=== PATIENT | male | born 1990 | race Caucasian/White ===

== ENCOUNTER 2021-10-21 09:00 | Outpatient (RCR) | payer OTHER, SELFPAY ==
[2021-09-13 16:03] VITALS: BP 110/65; PULSE 70
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
--- NOTE | 2021-10-31 16:31 | MHC.PT.DC ---
[facility] [place] Office [place] Office [place] Office [address] Justina Perkins [address] [phone] F: [phone] F: [phone] F: [phone] F: [phone] Physical Therapy Discharge Report Diagnosis: Injury L shoulder. Date of Surgery: Date of Evaluation: 09/13/21 Date of Discharge: 10/31/21 Treatments to Date: 11 Cancellations to Date: 1 No Shows to Date: Discharge Status: Improved Function Independent with HEP Insurance Declined Tx Patient Elected to Stop Discharge Summary: Larry had been making slow but steady progress towards his goals and improved function before being informed that his claim was being denied for future coverage and self DC'd with visits left approved for fear of being charged later. Electronically signed by: Erasmo Rush PT. Please sign and return to therapist. Thank you for your referral.
== END 2021-10-31 16:31 | disposition home or self-care (01) ==
LOC: HO.PTCHIC 09:00
PROVIDERS: PCP Physician Assistant; Visit Provider Physician Assistant
DX: S49.92XD Unspecified injury of left shoulder and upper arm, subsequent encounter (principal)
CPT/HCPCS: 97014; 97110; 97140; 97161; 97164

== ENCOUNTER 2022-04-17 15:42 | Outpatient (REF) | payer OTHER, SELFPAY ==
[2022-04-17 16:51] LABS: Anion Gap 14 (12-20); Blood Urea Nitrogen 13 mg/dL (9-16); Calcium 9.5 mg/dL (8.4-10.2); Carbon Dioxide 27 mmol/L (22-29); Chloride 105 mmol/L (96-108); Estimated Glomerular Filt Rate > 60; Glucose Random 94 mg/dL (60-115); Sodium 142 mmol/L (135-145)
[2022-04-17 18:36] LABS: Microalbum/Creatinine Ratio Ur 3.4 ug/mg cr
== END 2022-04-17 15:43 | disposition home or self-care (01) ==
LOC: HO.LAB 15:42
PROVIDERS: PCP Physician Assistant; Visit Provider Physician Assistant
DX: R80.9 Proteinuria, unspecified (principal)
CPT/HCPCS: 36415; 80048; 82043

== ENCOUNTER 2022-08-03 22:24 | Emergency (ER) | payer OTHER, SELFPAY ==
--- NOTE | ~2022-08-03 | US_ITS ---
EXAMINATION: US VENOUS ULTRASOUND WITH DOPPLER LOWER EXTREMITY, LEFT CLINICAL INFORMATION: Rule out DVT COMPARISON: None TECHNIQUE: Ultrasound of the deep veins is performed from the hip to the calf with compression sonography and color and pulse Doppler assessment. Spectral analysis with color-flow imaging is performed. FINDINGS: There is normal venous compression and respiratory variation and augmented flow. The visualized common femoral vein, superficial femoral vein, profunda femoral vein, popliteal vein, and the trifurcation region shows no evidence of deep venous thrombosis. Incomplete assessment of the calf veins due to edema, with the peroneal vein and proximal posterior tibial vein not well visualized. There is no significant popliteal fossa cyst. If the patient's symptoms persist, followup ultrasound in 5 days 7 days might be of value to exclude proximal propagation from a non-visualized calf vein. US/US venous duplex LE LT IMPRESSION: No DVT demonstrated in the left lower extremity.
--- NOTE | ~2022-08-03 | XR_ITS ---
EXAMINATION: XR TIBIA AND FIBULA, LEFT CLINICAL INFORMATION: Pain COMPARISON: None TECHNIQUE: AP and lateral views of the left tibia and fibula were obtained. FINDINGS: No acute fracture or dislocation. No osseous lesion or periostitis. Mild tricompartmental knee joint osteoarthritis noted with small marginal osteophytes. Ankle mortise is congruent and intact. No joint effusion at the ankle. Mild diffuse subcutaneous reticulation/edema. No soft tissue gas. XR/XR tibia fibula LT 2V IMPRESSION: 1. No acute osseous injury or radiographic evidence of stress reaction. 2. Mild tricompartmental knee joint osteoarthritis. 3. Mild diffuse subcutaneous edema.
[2022-08-03 22:29] VITALS: BP 129/84; PULSE 93; RESP 16; TEMP 36.7; O2SAT 98; BMI 55.0
--- NOTE | 2022-08-03 23:30 | PC.NURSE ---
patient reports hitting left leg on metal 3 days ago during slip and fall. left calf swollen w/ erythema and heat, tender to light palpation.
--- NOTE | 2022-08-04 00:14 | ED_ITS ---
HPI - Extremity Injury (Lower) General Chief Complaint: Extremity Injury, Lower Stated Complaint: fell 08/01 left leg pain and swelling Time Seen by Provider: 08/03/22 23:57 Source: patient Mode of arrival: ambulatory Limitations: no limitations History of Present Illness HPI Narrative: Patient comes emergency room complaining of left lower extremity pain, swelling. Patient states that approximately 2 days ago, patient fell, seems that he slipped and hit the back his calf on some piece of metal. Patient states that the swelling and pain has gradually been getting worse. Patient denies any head injuries, patient is not on blood thinners Related Data Previous Rx's Medication Instructions Recorded albuterol sulfate 90 mcg/actuation 2 puff inhalation Q6H PRN 01/25/22 aerosol inhaler shortness of breath or wheezing #6.7 grams prednisone 20 mg tablet 20 mg PO DAILY 5 days #5 tabs 01/25/22 ibuprofen 800 mg tablet 800 mg PO Q8H PRN pain 15 days #45 02/10/22 tabs nicotine (polacrilex) 2 mg gum 2 mg buccal Q2H PRN nicotine 04/06/22 cravings #50 ea alprazolam 1 mg tablet 1 mg PO BID 4 days #8 tabs 06/28/22 doxycycline hyclate 100 mg tablet 100 mg PO BID #14 tabs 08/04/22 Allergies Allergy/AdvReac Type Severity Reaction Status Date / Time amoxicillin [AMOXICILLIN] Allergy Intermediate HIVES/HARD Verified 04/06/22 09:31 TO BREATHE, rash clindamycin [CLINDAMYCIN] Allergy Intermediate ITCHY AND Verified 04/06/22 09:31 HIVES Penicillins [PENICILLINS] Allergy Intermediate HIVES Verified 04/06/22 09:31 Review of Systems Review of Systems: Constitutional : No Weight loss, No Fever, No Chills, No Night Sweats, No Fatigue, No Malaise ENT/Mouth : No Hearing loss, No Ear Pain, No Nasal Congestion, No Sinus Pain, No Hoarseness, No sore throat, No Rhinorrhea, No Swallowing Difficulty Eyes: No Eye Pain, No Swelling, No Redness, No Foreign Body, No Discharge, No Vision Changes Cardiovascular : No Chest Pain, No SOB, No Dyspnea on Exertion, No Orthopnea, No Edema, No Palpitations Respiratory : No Cough, No Sputum, No Wheezing, No Smoke Exposure, No Dyspnea Gastrointestinal : No Nausea, No Vomiting, No Diarrhea, No Constipation, No abdominal Pain, No Hematochezia, No Melena Genitourinary : no irregular bleeding, No Dysuria, No Urinary Frequency, No Hematuria, No Urinary Incontinence, No Urgency, No Flank Pain, No Urinary Flow Changes, No Hesitancy Musculoskeletal : Complaining of left lower extremity calf pain, swelling, redness Skin : No Skin Lesions, No rash Neuro : No Weakness, No Numbness, No Paresthesias, No Loss of Consciousness, No Dizziness, No Headache Psych : No Anxiety/Panic, No Depression, No SI/HI/AH/VH, No Social Issues, Heme/Lymph: No Bruising, No Bleeding,No Lymphadenopathy Endocrine : No Polyuria, No Polydipsia, No Temperature Intolerance [facility] Past Medical History Medical History LILY (obstructive sleep apnea) Surgical History History of open reduction and internal fixation (ORIF) procedure Family History Family History Mother Diabetes Fibromyalgia Father No problems noted. Sister Cancer Social History Social History Housing: Apartment Patient Tobacco Use Status: Former Tobacco user Quit Date: December 2021 Tobacco use type: Cigarette e-Cigarette/Vaping Use: Never Used Advance Directives: No Advance Directives Information Provided: No service: No Current occupational status: employed Cognitive needs: No Hearing needs: No Vision needs: No Physical Exam Vital Signs: Vital Signs: Last Vital Signs Temp 98.0 F 08/03/22 22:29 Pulse 93 08/03/22 22:29 Resp 16 08/03/22 22:29 BP 129/84 08/03/22 22:29 Pulse Ox 98 08/03/22 22:29 O2 Del Method 08/03/22 22:29 BMI result Body Mass Index 55.0 Const: Other: Appearance: Alert. Oriented X3. No acute distress. Eyes: Pupils equal, round and reactive to light. ENT: Pharynx normal. Neck: Normal inspection. Neck supple. No lymph nodes noted. No crepitus CVS: Normal heart rate and rhythm. Pulses normal. Normal S1 and S2 Respiratory: No respiratory distress. Breath sounds normal. No Wheezing. No rales Abdomen: Soft and nontender. No rigidity. No distention. Skin: Skin warm and dry. Normal skin color. Normal skin turgor. Extremities: Both lower extremities are large due to body habitus. The left leg seems on the calf enlarged, tender palpation, erythematous Neuro: Oriented X 3. No motor deficit. No sensory deficit. Moving all extremities. No slurred speech. CN 2 through 12 grossly intact Psych: calm, cooperative, normal affect Course Course Course Narrative: -patient likely has healed lightest versus DVT. X-ray of the tibia/fibula negative. -duplex ultrasound pending -patient given 1 dose of p.o. tramadol Medications Administered Discontinued Medications Generic Name Dose Route Start Last Admin Trade Name Freq PRN Reason Stop Dose Admin Tramadol HCl 50 mg 08/04/22 00:13 08/04/22 00:42 Tramadol Hcl 50 Mg Tablet PO 08/04/22 00:14 50 mg ONCE ONE Administration Medical Decision Making Medical Decision Making [facility] Narrative: -patient he has lower extremity cellulitis -ultrasound has not been done at this time. Still pending Patient will be given the 1st dose of antibiotics. Sign-out given to Dr. Santos Discharge Plan Discharge Clinical Impression: Cellulitis Patient Disposition: Home, Self-Care Instructions: Cellulitis (ED) Additional Instructions: Please follow-up with your primary care physician tomorrow. If you have any worsening or new symptoms, please return to the emergency room or call 911 Prescriptions: New doxycycline hyclate 100 mg tablet 100 mg PO BID Qty: 14 0RF No Action ibuprofen 800 mg tablet 800 mg PO Q8H PRN (Reason: pain) 15 Days Qty: 45 0RF alprazolam 1 mg tablet 1 mg PO BID 4 Days Qty: 8 0RF albuterol sulfate 90 mcg/actuation HFA aerosol inhaler 2 puff inhalation Q6H PRN (Reason: shortness of breath or wheezing) Qty: 6.7 0RF prednisone 20 mg tablet 20 mg PO DAILY 5 Days Qty: 5 0RF nicotine (polacrilex) 2 mg gum 2 mg buccal Q2H PRN (Reason: nicotine cravings) Qty: 50 0RF
[2022-08-04] MEDS: traMADoL HCL 50 MG TABLET PO (00:42)
[2022-08-04] MEDS: Doxycycline Monohydrate 100 MG CAPSULE PO (01:42)
[2022-08-04 03:19] VITALS: BP 131/58; PULSE 82; RESP 20; O2SAT 98
== END 2022-08-04 03:20 | disposition home or self-care (01) ==
PROVIDERS: Emergency Provider Emergency Medicine; PCP Physician Assistant
DX: L03.116 Cellulitis of left lower limb (principal); R60.0 Localized edema; Z79.899 Other long term (current) drug therapy; Z87.891 Personal history of nicotine dependence
CPT/HCPCS: 73590; 93971; 99284

== ENCOUNTER 2022-10-05 06:10 | Emergency (ER) | payer OTHER, SELFPAY ==
--- NOTE | ~2022-10-05 | CT_ITS ---
EXAMINATION: CT ABDOMEN AND PELVIS WITHOUT CONTRAST CLINICAL INFORMATION: Left flank pain, evaluate for ureterolithiasis COMPARISON: None available. TECHNIQUE: Multidetector volumetric imaging was performed from the superior aspect of the liver through the pubic symphysis. Sagittal and coronal reformatted images were obtained on the technologist's workstation. This CT examination was performed using dose optimization techniques as appropriate, variously including the following: *Automated exposure control *Adjustment of mA and/or kV according to patient size (this includes techniques or standardized protocols for targeted exams where dose is matched to indication/reason for exam; i.e. extremities or head) *Use of iterative reconstruction technique DLP: 1309 mGy-cm FINDINGS: LUNG BASES: The visualized lung bases are unremarkable. LIVER, GALLBLADDER, AND BILIARY TREE: The liver is normal in size, shape, and attenuation. No focal hepatic lesion or biliary ductal dilatation is present. The gallbladder is unremarkable with no evidence of radiopaque gallstones, gallbladder wall thickening, or obvious pericholecystic inflammatory changes. PANCREAS: Prominent fatty infiltration of the pancreas particularly involving the pancreatic head and uncinate process. SPLEEN: Unremarkable. ADRENAL GLANDS: Unremarkable. KIDNEYS AND URETERS: Mild left-sided hydroureteronephrosis secondary to a calculus involving the left proximal/mid ureter measuring 6 mm with slight periureteral and perinephric stranding. No right-sided nephrolithiasis or hydronephrosis. BLADDER: Unremarkable. GASTROINTESTINAL TRACT: Colonic diverticulosis without acute diverticulitis. The small and large bowel are unremarkable. The appendix is unremarkable. ABDOMINAL WALL: No significant hernia is appreciated. LYMPH NODES: A few mildly prominent though nonenlarged bilateral inguinal periaortic and mesenteric lymph nodes are noted. VASCULAR: Unremarkable. PELVIC VISCERA: Prostate measures up to 4.0 cm. OSSEOUS STRUCTURES: Grade 1 retrolisthesis of L5 on S1. Multilevel degenerative changes of the thoracolumbar lumbosacral spine greatest at L5-S1. Partially visualized right hip hardware. CT/CT abdomen pelvis wo IV con IMPRESSION: 1. Mild left-sided hydroureteronephrosis secondary to a calculus involving the left proximal/mid ureter measuring 6 mm with slight periureteral and perinephric stranding. 2. Prominent fatty infiltration of the pancreas particularly involving the pancreatic head and uncinate process. 3. Colonic diverticulosis without acute diverticulitis. 4. Grade 1 retrolisthesis of L5 on S1.
[2022-10-05 06:30] VITALS: BP 111/92; PULSE 62; RESP 20; TEMP 36.4; O2SAT 97; BMI 53.8
--- NOTE | 2022-10-05 06:45 | MHC.EDTECH ---
pt a difficult draw ,unable to get labs ,dasha richardson aware .
[2022-10-05 07:01] LABS: MANUAL DIFF FLAG NO
[2022-10-05 07:06] LABS: Appearance Urine Clear; Color Urine Dark Yellow; Glucose Urine UA Negative (Negative); Leukocyte Esterase Urine Trace (Negative); Nitrite Urine Negative (Negative); UMIC TRIGGER UACC YES; Urine Blood Large (3+) (Negative); Urine Ketones Negative (Negative); Urine Protein Trace mg/dL (Neg-Trace)
[2022-10-05 07:09] LABS: Bacteria Urine None Seen (None Seen); Hyaline Casts Urine 0-2 /LPF (0-2); RBC Urine >20 /HPF (0-2); Squamous Epithelial Cell Urine 0-2 /HPF (0-2); WBC Urine 0-5 /HPF (0-5)
[2022-10-05 07:11] LABS: Basophils Absolute Auto 0.1 X10*3/uL (0.0-0.2); Basophils Percent Auto 0.5 % (0-2); Eosinophils Absolute Auto 0.2 X10*3/uL (0.0-0.4); Eosinophils Percent Auto 1.5 % (0-4); Hematocrit 45.2 % (42.0-52.0); Imm Gran Abs Auto 0.04 X10*3/uL (0.00-0.03); Imm Gran Pct Auto 0.4 % (0.0-0.4); Lymphocytes Absolute Auto 2.4 X10*3/uL (1.2-4.9); Lymphocytes Percent Auto 21.1 % (20-40); Mean Corpuscular HGB Conc 33.2 g/dl (31.0-36.0); Mean Corpuscular Hemoglobin 30.5 pg (27.0-33.0); Mean Corpuscular Volume 92.1 fL (80.0-98.0); Mean Platelet Volume 11.1 fL (9.4-12.4); Monocytes Absolute Auto 1.1 X10*3/uL (0.1-1.2); Monocytes Percent Auto 9.4 % (2-11); Neutrophils Absolute Auto 7.7 x10*3/uL (2.0-8.3); Neutrophils Percent Auto 67.1 % (45-73); Platelet Count 278 X10*3/uL (160-400); Red Blood Count 4.91 X10*6/uL (4.60-5.80); Red Cell Distribution Width 12.1 % (11.0-16.0); White Blood Count 11.4 X10*3/uL (4.8-10.8)
[2022-10-05 07:18] LABS: Alanine Aminotransferase 14 U/L (0-40); Albumin Level 4.1 g/dL (3.5-5.0); Alkaline Phosphatase 64 U/L (39-117); Anion Gap 15 (12-20); Aspartate Amino Transferase 16 U/L (5-37); Bilirubin Total 0.8 mg/dL (0.0-1.0); Blood Urea Nitrogen 12 mg/dL (9-16); Calcium 8.7 mg/dL (8.4-10.2); Carbon Dioxide 20 mmol/L (22-29); Chloride 110 mmol/L (96-108); Estimated Glomerular Filt Rate > 60; Glucose Random 124 mg/dL (60-115); Lipase 9 U/L (8-78); Potassium 3.9 mmol/L (3.3-5.1); Sodium 141 mmol/L (135-145); Total Protein 6.5 g/dL (6.5-8.0)
--- NOTE | 2022-10-05 07:38 | ED.ABDPAIN ---
HPI - Abdominal Pain General Chief Complaint: Abdominal Pain Stated Complaint: abdominal pain Time Seen by Provider: 10/05/22 07:25 Source: patient Mode of arrival: ambulatory Limitations: no limitations History of Present Illness HPI narrative: 32-year-old male presents flank pain. Pain is on the left side. Radiates left groin. The pain is constant with waves of worsening symptoms. There is no clear relieving or exacerbating features. He has urinary frequency but no dysuria or hematuria. He has never had this before. He has nausea but no vomiting. Denies ear constipation. He denies any fevers or chills. Current symptoms are 10/10. He describes the pain as a sharp pain. Related Data Previous Rx's Medication Instructions Recorded ibuprofen 800 mg tablet 800 mg PO Q8H PRN pain 15 days #45 02/10/22 tabs nicotine (polacrilex) 2 mg gum 2 mg buccal Q2H PRN nicotine 04/06/22 cravings #50 ea albuterol sulfate 90 mcg/actuation 2 puff inhalation Q4-6H PRN 08/18/22 aerosol inhaler (Ventolin HFA) shortness of breath or wheezing #8.5 grams alprazolam 1 mg tablet 1 mg PO BID 4 days #8 tabs 08/22/22 ibuprofen 800 mg tablet 800 mg PO Q8H PRN pain #20 tabs 10/05/22 ondansetron 4 mg disintegrating 4 mg PO Q8H PRN nausea and 10/05/22 tablet vomiting #14 tabs oxycodone 5 mg tablet 5 mg PO Q6H PRN pain #14 tabs 10/05/22 Allergies Allergy/AdvReac Type Severity Reaction Status Date / Time amoxicillin [AMOXICILLIN] Allergy Intermediate HIVES/HARD Verified 10/05/22 06:35 TO BREATHE, rash clindamycin [CLINDAMYCIN] Allergy Intermediate ITCHY AND Verified 10/05/22 06:35 HIVES Penicillins [PENICILLINS] Allergy Intermediate HIVES Verified 10/05/22 06:35 PMFSH Past Medical History Medical History LILY (obstructive sleep apnea) Surgical History History of open reduction and internal fixation (ORIF) procedure Family History Family History Mother Diabetes Fibromyalgia Father No problems noted. Sister Cancer Social History Social History Housing: Apartment Patient Tobacco Use Status: Former Tobacco user Quit Date: December 2021 Tobacco use type: Cigarette Smoked in Last 30 Days: No e-Cigarette/Vaping Use: Never Used Use of substances other than those prescribed or required for medical reasons: No Substance Use Type: Marijuana Advance Directives: No service: No Current occupational status: employed Cognitive needs: No Hearing needs: No Vision needs: No Physical Exam ED Vital Signs: Vital Signs - 24 hr 10/05/22 06:30 10/05/22 08:41 Temperature 97.6 F Pulse Rate 62 67 Respiratory Rate 20 18 Blood Pressure 111/92 H 144/79 H Pulse Oximetry 97 99 Oxygen Delivery Method Room Air Room Air BMI result Body Mass Index 51.2 GEN: Well developed, acute distress, alert, oriented HEENT: Normocephalic, atraumatic, normal external ears, nose appears normal, no oropharyngeal edema or exudates Eyes: Normal to appearance Neck: Supple, no lymphadenopathy Respiratory: Talks in complete sentences, no respiratory distress, clear to auscultation bilaterally Cardiovascular: Regular rate and rhythm, no murmurs rubs or gallops Abdomen: Soft, nontender, nondistended, no guarding, no rebound Back: Left CVA tenderness Extremities: No clubbing cyanosis or edema Neurologic: No focal neurologic deficits, cranial nerves 2-12 intact, strength is 5/5 bilaterally, gait normal Skin: No rash Course Course Course Narrative: 32-year-old male presents with acute left flank pain. He is clearly in acute distress from pain and discomfort. He appears to have a kidney stone. Multiple differential diagnosis currently being considered. Will have a CT scan to rule out nephrolithiasis. Also order urinalysis to rule out pyelonephritis. Patient receive IV fluids, antiemetics and analgesics. Reevaluation(s) Reevaluation #1: pain is managable at this time. Time: 09:16 Reevaluation #2: Patient is feeling much better at this time. Will discharge patient. Aware he has a 6 mm stone. He is aware he should follow up with the urologist. He was given strict return instructions. Medical Decision Making Medical Decision Making [facility] Narrative: Patient's presentation is most consistent with renal colic. Most likely it is from a non infected kidney stone. Given history and exam, I have a low suspicion for acute appendicitis, torsion, cholecystitis, AAA, aortic dissection, serious bacterial illness or other emergent intra-abdominal pathology. Workup will include CBC, metabolic panel, CT scan the abdomen pelvis, urinalysis. Patient will have frequent you reassessments. Differential Diagnosis Differential Diagnoses: The differential diagnosis associated with the presentation includes (Kidney stone, pyelonephritis, appendicitis, diverticulitis, colitis, abdominal pain) Admission/Observation Consideration of admission/observation: Escalation of care including admission/observation considered Lab Data [facility] Lab Attestation statement: I reviewed the patient's lab results. 10/05/22 06:56 10/05/22 06:57 Labs: Lab Results 10/05/22 10/05/22 10/05/22 Range/Units 06:56 06:56 06:57 WBC 11.4 H (4.8-10.8) X10*3/uL RBC 4.91 (4.60-5.80) X10*6/uL Hgb 15.0 (14.0-18.0) g/dl Hct 45.2 (42.0-52.0) % MCV 92.1 (80.0-98.0) fL MCH 30.5 (27.0-33.0) pg MCHC 33.2 (31.0-36.0) g/dl RDW 12.1 (11.0-16.0) % Plt Count 278 (160-400) X10*3/uL MPV 11.1 (9.4-12.4) fL Immature Gran % (Auto) 0.4 (0.0-0.4) % Neut % (Auto) 67.1 (45-73) % Lymph % (Auto) 21.1 (20-40) % [place] % (Auto) 9.4 (2-11) % Eos % (Auto) 1.5 (0-4) % Baso % (Auto) 0.5 (0-2) % Lymph # (Auto) 2.4 (1.2-4.9) X10*3/uL [place] # (Auto) 1.1 (0.1-1.2) X10*3/uL Eos # (Auto) 0.2 (0.0-0.4) X10*3/uL Baso # (Auto) 0.1 (0.0-0.2) X10*3/uL Abs Immat Gran (auto) 0.04 H (0.00-0.03) X10*3/uL Absolute Neuts (auto) 7.7 (2.0-8.3) x10*3/uL Absolute Nucleated RBC 0.000 (0.0-0.012) X10*3/uL Nucleated RBC % (auto) 0.0 (0.0-0.2) /100WBC Sodium 141 (135-145) mmol/L Potassium 3.9 (3.3-5.1) mmol/L Chloride 110 H (96-108) mmol/L Carbon Dioxide 20 L (22-29) mmol/L Anion Gap 15 (12-20) BUN 12 (9-16) mg/dL Creatinine 0.83 (0.5-1.4) mg/dL Estim Creat Clear Calc 231.0 Estimated GFR > 60 Random Glucose 124 H (60-115) mg/dL Calcium 8.7 D (8.4-10.2) mg/dL Total Bilirubin 0.8 (0.0-1.0) mg/dL AST 16 (5-37) U/L ALT 14 (0-40) U/L Alkaline Phosphatase 64 (39-117) U/L Total Protein 6.5 (6.5-8.0) g/dL Albumin 4.1 (3.5-5.0) g/dL Lipase 9 (8-78) U/L Urine Color Dark Yellow Urine Appearance Clear Urine pH 6.0 (5.0-9.0) Ur Specific [place] 1.020 (1.005-1.025) Urine Protein Trace (Neg-Trace) mg/dL Urine Glucose (UA) Negative (Negative) mg/dL Urine Ketones Negative (Negative) mg/dL Urine Blood Large (3+) H (Negative) Urine Nitrite Negative (Negative) Ur Leukocyte Esterase Trace H (Negative) Urine RBC >20 H (0-2) /HPF Urine WBC 0-5 (0-5) /HPF Ur Squamous Epith Cells 0-2 (0-2) /HPF Urine Bacteria None Seen (None Seen) Hyaline Casts 0-2 (0-2) /LPF Independent Interpretation I performed an independent interpretation of an: CT Scan (For of mm mid ureteral stone) Radiology Impression Discussion of test interpretation with radiology: I have reviewed the radiologist's reading. ( CT/CT abdomen pelvis wo IV con IMPRESSION: 1. Mild left-sided hydroureteronephrosis secondary to a calculus involving the left proximal/mid ureter measuring 6 mm with slight periureteral and perinephric stranding. 2. Prominent fatty infiltration of the pancreas particularly invo) Tests considered The following testing was considered but not selected: Ultrasound Prescription Management I considered prescription management with: Pain Medication and Antibiotic Medications Administered Discontinued Medications Generic Name Dose Route Start Last Admin Trade Name Freq PRN Reason Stop Dose Admin Sodium Chloride 1,000 mls @ 999 mls/hr 10/05/22 07:45 10/05/22 08:14 Ns IV 10/05/22 08:45 999 mls/hr .Q1H1M HECTOR Administration Ketorolac Tromethamine 15 mg 10/05/22 07:37 10/05/22 08:13 Ketorolac Tromethamine 15 Mg/Ml Vial IVPUSH 10/05/22 07:38 15 mg ONCE ONE Administration Morphine Sulfate 4 mg 10/05/22 09:16 10/05/22 09:29 Morphine Sulfate 4 Mg/Ml Cartridge IVPUSH 10/05/22 09:17 4 mg ONCE ONE Administration Protocol Ondansetron HCl 4 mg 10/05/22 07:37 10/05/22 08:13 Ondansetron Hcl 4 Mg/2 Ml Vial IVPUSH 10/05/22 07:38 4 mg ONCE ONE Administration Discharge Plan Discharge Clinical Impression: Left flank pain, Ureterolithiasis Patient Disposition: Home, Self-Care Instructions: Ureteral Stones (ED) Additional Instructions: For pain take the followin) ibuprofen 800 mg every 8 hours as needed (best kidney stone pain medicine 2) tylenol 1000 mg every 6 hours as needed for additional pain 3) oxycodone 5 mg every 6 hours as needed for severe pain. Drink plenty of fluids. Prescriptions: New ibuprofen 800 mg tablet 800 mg PO Q8H PRN (Reason: pain) Qty: 20 0RF oxycodone 5 mg tablet 5 mg PO Q6H PRN (Reason: pain) Qty: 14 0RF Rx Instructions: Partial Fill upon patient request. ondansetron 4 mg tablet,disintegrating 4 mg PO Q8H PRN (Reason: nausea and vomiting) Qty: 14 0RF No Action ibuprofen 800 mg tablet 800 mg PO Q8H PRN (Reason: pain) 15 Days Qty: 45 0RF albuterol sulfate [Ventolin HFA] 90 mcg/actuation HFA aerosol inhaler 2 puff inhalation Q4-6H PRN (Reason: shortness of breath or wheezing) Qty: 8.5 0RF alprazolam 1 mg tablet 1 mg PO BID 4 Days Qty: 8 0RF nicotine (polacrilex) 2 mg gum 2 mg buccal Q2H PRN (Reason: nicotine cravings) Qty: 50 0RF Referrals: good, [place] [Other] - 3 days
[2022-10-05 08:10] VITALS: BMI 51.2
--- NOTE | 2022-10-05 08:10 | PC.NURSE ---
pt alert and oriented, skin appropriate for ethnicity, respirations even and unlabored, pt reports left sided flank pain with nausea that started around 0400
[2022-10-05] MEDS: ondansetron HCL 4 MG/2 ML VIAL IVPUSH (08:13)
[2022-10-05] MEDS: Ketorolac Tromethamine 15 MG/ML VIAL IVPUSH (08:13)
[2022-10-05] MEDS: 0.9 % Sodium Chloride 1,000 ML 999 ML IV (08:14)
[2022-10-05 08:41] VITALS: BP 144/79; PULSE 67; RESP 18; O2SAT 99
[2022-10-05] MEDS: Morphine Sulfate 4 MG/ML CARTRIDGE IVPUSH (09:29)
[2022-10-05 10:24] VITALS: BP 120/70; PULSE 51; RESP 20; TEMP 36.6; O2SAT 100
== END 2022-10-05 10:32 | disposition home or self-care (01) ==
PROVIDERS: Emergency Provider Emergency Medicine; PCP Physician Assistant
DX: N20.1 Calculus of ureter (principal); R10.30 Lower abdominal pain, unspecified; R10.9 Unspecified abdominal pain; Z87.891 Personal history of nicotine dependence; Z79.899 Other long term (current) drug therapy
CPT/HCPCS: 36415; 74176; 80053; 81001; 83690; 85025; 96361; 96374; 96375; 99284; 99285; J1885; J2270; J2405

== ENCOUNTER → 2022-10-16 14:44 | Outpatient (BNVA) | payer OTHER, SELFPAY | PROVIDERS: PCP Physician Assistant; Visit Provider Nurse Practitioner Family | DX: N13.2 Hydronephrosis with renal and ureteral calculous obstruction (principal) | CPT/HCPCS: 99202 ==

== ENCOUNTER 2022-11-08 09:25 | Outpatient (REF) | payer OTHER, SELFPAY ==
--- NOTE | ~2022-11-08 | US_ITS ---
EXAMINATION: US RETROPERITONEAL LIMITED (RENAL ONLY) CLINICAL INFORMATION: Calculus of kidney. COMPARISON: CT abdomen pelvis 10/05/2022. TECHNIQUE: Real-time imaging of the kidneys. Exam is limited due to bowel gas FINDINGS: RIGHT KIDNEY: 13.1 x 4.9 x 5.1 cm (SAG x AP x TRV). The kidney is normal in size, contour, and echogenicity. Renal cortical thickness is normal. No calculi or focal parenchymal lesions. No hydronephrosis. LEFT KIDNEY: 13.6 x 6.1 x 5.4 cm (SAG x AP x TRV). The kidney is normal in size, contour, and echogenicity. Renal cortical thickness is normal. No calculi or focal parenchymal lesions. No hydronephrosis. US/US renal BI IMPRESSION: Very limited exam. No stone or hydronephrosis seen.
== END 2022-11-08 09:26 | disposition home or self-care (01) ==
LOC: HO.US 09:25
PROVIDERS: PCP Physician Assistant; Visit Provider Nurse Practitioner Family
DX: N20.0 Calculus of kidney (principal)
CPT/HCPCS: 76775

== ENCOUNTER 2023-04-06 08:45 | Outpatient (AMB) | payer OTHER, SELFPAY ==
--- NOTE | 2023-04-06 08:47 | A.OFFVIS_ITS ---
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 Accompanied by: Self / Same As Patient Allergies amoxicillin [AMOXICILLIN] Allergy (Intermediate, Verified 10/16/22 21:45) HIVES/HARD TO BREATHE, rash clindamycin [CLINDAMYCIN] Allergy (Intermediate, Verified 10/16/22 21:45) ITCHY AND HIVES Penicillins [PENICILLINS] Allergy (Intermediate, Verified 10/16/22 21:45) HIVES Medication List - Last Reconciled 04/06/23 by NINA Schmitz-LYNN albuterol sulfate 90 mcg/actuation (Ventolin HFA) 2 puffs inhalation Q4-6H PRN alprazolam 1 mg PO BID PRN ibuprofen 800 mg PO Q8H PRN HPI HPI Comments History of Present Illness Details Larry is a pleasant 32-year-old male patient of Dr. Dong. He presents to the office today for follow-up. Of note, patient was seen approximately 4 months ago as a new patient for nephrolithiasis at which time imaging was ordered however patient did not follow through. He discusses having had weight loss surgery in October of this year and has lost over 100 lb. He discusses going to [facility] Emergency Room approximately one month ago for issues with his urination, flank pain, and dark urine. In review of patient's chart it appears CT of the abdomen and pelvis was ordered and performed. These results reviewed with the patient today. The kidneys are unremarkable. No evidence of nephrolithiasis or hydronephrosis. Patient reports he was diagnosed with a UTI and has since finished antibiotic therapy. When asked he reports he continues with intermittent episodes of difficulty urinating. He otherwise currently denies urinary urgency, urinary frequency, incontinence, nocturia, hematuria, dysuria, foul smelling urine, changes to urinary stream, flank pain, fever, and or chills. In office urinalysis results reviewed with the patient today. PVR 0 mL. When asked patient does report a longstanding history of smoking cigarettes as well as recreational marijuana. However, he reports having stop smoking cig arettes for his weight loss surgery and recently stop smoking recreational marijuana as him and his partner are trying to have children. No leukocytes, nitrites, or hematuria noted in urinalysis today. Discussed further gross hematuria work up with CT urogram, cytology, and in office cystoscopy however patient declines at this time. Discussed CT from [facility] with no contrast and would like to obtain CT urogram and undergo gross heamturia workup however patient states he would like to think about this. [facility] Medical History LILY (obstructive sleep apnea) Surgical History History of open reduction and internal fixation (ORIF) procedure Family History Mother Diabetes Fibromyalgia Father No problems noted. Sister Cancer Social History Housing: Apartment Patient Tobacco Use Status: Former Tobacco user Quit Date: December 2021 Tobacco use type: Cigarette e-Cigarette/Vaping Use: Never Used Substance Use Type: Marijuana service: No Current occupational status: employed Cognitive needs: No Hearing needs: No Vision needs: No Review of Systems Const Reports as per HPI Eyes Reports no additional complaints ENT Reports no additional complaints Card Reports no additional complaints Resp Reports no additional complaints GI Reports as per HPI Reports as per HPI Musc Reports no additional complaints Neuro Reports no additional complaints Psych Reports no additional complaints Endo Reports no additional complaints Hank/Lymph Reports no additional complaints Aller/Immun Reports no additional complaints Physical Exam Vital Signs: BMI result Body Mass Index 35.9 Const General: cooperative, comfortable, no acute distress, well developed, alert and awake Orientation/consciousness: patient oriented x3 Limitations: no limitations HEENT Head: Yes normal to inspection, Yes normocephalic and Yes atraumatic Ears: hearing grossly normal bilaterally Eyes General: appearance normal, both eyes and all related structures Neck Neck: Yes normal visual inspection and Yes trachea midline Chest Chest palpation & inspection: normal inspection of the chest Resp Effort & Inspection: normal respiratory effort and able to speak in complete sentences Cardio Rate: regular rate GI Inspection: Yes normal to inspection General: Yes CVA tenderness on the left Back/Spine/Pelvis Back: CVA tenderness Skin General skin exam: no rashes or lesions noted Neuro General: patient oriented x3 Extrem General: Yes normal to inspection Psych Appearance: grossly normal and well kempt Mental Status: mental status grossly normal Speech and movement: Normal speech and movement present and Clear speech present Affect: normal affect Attitude: cooperative Thought process: Normal thought process present Thought content: Normal thought content present Insight: Good insight present (Psych) Judgement: Good judgement present (Psych) Office Procedures Post Void Residual Post Residual Void Post Void Residual (PVR): 0 [id number] Void Residual by ultrasound Results AMB Urinalysis, Automated UA Leukoctes 0 Khadar/uL Last Edit by BRITTNEE Cerda on 04/06/23 09:10 UA Nitrite Negative Last Edit by Paula Saavedra [facility] on 04/06/23 09:10 UA Urobilinogen 0.2 mg/dL Last Edit by Paula Saavedra Margarita on 04/06/23 09:1 0 UA Protein 0 mg/dL Last Edit by Paula Saavedra [facility] on 04/06/23 09:10 UA pH 8.0 Last Edit by Paula Saavedra Margarita on 04/06/23 09:10 UA Blood 0 Gómez/uL Last Edit by Paula Saavedra Margarita on 04/06/23 09:10 UA Specific Wentworth 1.015 Last Edit by Paula Saavedra Margarita on 04/06/23 09: 10 UA Ketone Negative Last Edit by BRITTNEE Cerda on 04/06/23 09:10 UA Bilirubin 0 mg/dL Last Edit by Paula Saavedra [facility] on 04/06/23 09:10 UA Glucose 0 mg/dL Last Edit by Paula Saavedra Margarita on 04/06/23 09:10 Results Reviewed Results Reviewed: Laboratory Last Values Urine pH (Auto) 8.0 04/06/23 09:04 Specific Wentworth (Auto) 1.015 04/06/23 09:04 Urine Protein (Auto) 0 mg/dL 04/06/23 09:04 Glucose (UA)(Auto) 0 mg/dL 04/06/23 09:04 Urine Ketones (Auto) Negative 04/06/23 09:04 Urine Blood (Auto) 0 Gómez/uL 04/06/23 09:04 Urine Nitrite (Auto) Negative 04/06/23 09:04 Urine Bilirubin (Auto) 0 mg/dL 04/06/23 09:04 Urine Urobilinogen (Auto) 0.2 mg/dL 04/06/23 09:04 Leukocyte Esterase (Auto) 0 Khadar/uL 04/06/23 09:04 Assessment & Plan Assessment & Plan (1) Lower urinary tract symptoms: Code(s): R39.9 - Unspecified symptoms and signs involving the genitourinary system (2) Dark urine: Code(s): R82.998 - Other abnormal findings in urine Plan In office urinalysis results reviewed with the patient today; as noted above; will send for urine cytology. Discussed at length potential causes for gross hematuria. Discussed obtaining CT urogram, cytology, in office cystoscopy for workup of gross hematuria; however patient would like to think about this. Recent CT of the abdomen with no contrast results reviewed with the patient today; as noted above. Educated and encouraged to stop smoking recreational marijuana as well as cigarettes for overall health and well-being. Will obtain retroperitoneal ultrasound for further assessment evaluation. Discussed, educated, instructed on the importance of drinking plenty of water daily. Start Flomax as discussed and prescribed. Follow-up in 6-8 weeks with imaging to be completed prior; or sooner with any issues, concerns, and or questions. Orders: Orders Blood Urea Nitrogen 04/06/23 R39.9 - Unspecified symptoms and signs involving the genitourinary system, R82.998 - Other abnormal findings in urine Creatinine 04/06/23 R39.9 - Unspecified symptoms and signs involving the genitourinary system, R82.998 - Other abnormal findings in urine AMB Post Void Residual by ultrasound 04/06/23 N39.8 - Other specified disorders of urinary system AMB Urinalysis Automated 04/06/23 Z13.9 - Encounter for screening, unspecified US retroperitoneal comp 04/06/23 R39.9 - Unspecified symptoms and signs involving the genitourinary system, R82.998 - Other abnormal findings in urine Medications: New tamsulosin 0.4 mg PO BEDTIME 30 caps 1RF 30 days N40.1 - Benign prostatic hyperplasia with lower urinary tract symptoms, R35.1 - Nocturia Changed From alprazolam 1 mg PO BID 4 days 8 tabs 0RF F43.10 - Post-traumatic stress disorder, unspecified To alprazolam 1 mg PO BID PRN F43.10 - Post-traumatic stress disorder, unspecified Coding Level of Care Code Est Pt Level 4 (74146) Diagnoses Lower urinary tract symptoms R39.9 Dark urine R82.998 CPT Codes Post Residual Void - PVR CPT Code: 28658-Flrn Void Residual by ultrasound ([id number])
[2023-04-06 09:03] VITALS: BMI 35.9
== END 2023-04-06 09:14 | disposition home or self-care (01) ==
PROVIDERS: PCP Physician Assistant; Visit Provider Nurse Practitioner Family
DX: R39.9 Unspecified symptoms and signs involving the genitourinary system (principal); R82.998 Other abnormal findings in urine
CPT/HCPCS: 99214

== ENCOUNTER → 2023-04-06 08:45 | Outpatient (BNVA) | payer OTHER, SELFPAY | PROVIDERS: PCP Physician Assistant; Visit Provider Nurse Practitioner Family | DX: R39.9 Unspecified symptoms and signs involving the genitourinary system (principal); R82.998 Other abnormal findings in urine | CPT/HCPCS: 51798; 81003; 99212 ==

== ENCOUNTER 2023-04-11 08:12 | Outpatient (AMB) | payer OTHER, SELFPAY ==
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
[2023-04-11 08:47] VITALS: BP 110/72; BMI 34.9
== END 2023-04-11 09:21 | disposition home or self-care (01) ==
PROVIDERS: PCP Physician Assistant; Visit Provider Physician Assistant
DX: Z23 Encounter for immunization (principal)
CPT/HCPCS: 90471; 90686; 99395

== ENCOUNTER → 2023-04-23 10:28 | Outpatient (REF) | payer OTHER, SELFPAY ==
--- NOTE | 2023-04-23 10:33 | HM_ITS ---
* Total monitoring time 3 days. * Underlying rhythm is sinus. Average ventricular rate 54/Min. Range 32 to 119/Min. About 66% of the time, rate less than 60/Min. * Rare ventricular ectopy. One run of 4 beats. Part of this run could be supraventricular with aberrant conduction. * Rare supraventricular ectopy. * No significant pauses or AV blocks. * Shortness of breath and weakness in patient diary associated with mild sinus tachycardia at 105/Min. MTDD
[2023-04-23 11:46] LABS: Hematocrit 38.1 % (42.0-52.0); Hemoglobin 12.5 g/dl (14.0-18.0); Mean Corpuscular HGB Conc 32.8 g/dl (31.0-36.0); Mean Corpuscular Hemoglobin 30.9 pg (27.0-33.0); Mean Corpuscular Volume 94.3 fL (80.0-98.0); Mean Platelet Volume 11.5 fL (9.4-12.4); Platelet Count 264 X10*3/uL (160-400); Red Blood Count 4.04 X10*6/uL (4.60-5.80); Red Cell Distribution Width 12.1 % (11.0-16.0); White Blood Count 6.7 X10*3/uL (4.8-10.8)
[2023-04-23 12:09] LABS: Urine Cytology See Pathology rpt
[2023-04-23 12:17] LABS: Appearance Urine Clear; Color Urine Dark Yellow; Glucose Urine UA Negative (Negative); Leukocyte Esterase Urine Trace (Negative); Nitrite Urine Negative (Negative); PH 6.5 (5.0-9.0); Specific Gravity - Urine >= 1.030 (1.005-1.025); UMIC TRIGGER UACC YES; Urine Blood Negative (Negative); Urine Ketones Trace mg/dL (Negative); Urine Protein Trace mg/dL (Neg-Trace)
[2023-04-23 12:20] LABS: Bacteria Urine None Seen (None Seen); RBC Urine 0-2 /HPF (0-2); Squamous Epithelial Cell Urine 0-2 /HPF (0-2); WBC Urine 0-5 /HPF (0-5)
[2023-04-23 13:00] LABS: Anion Gap 13 (12-20); Blood Urea Nitrogen 8 mg/dL (9-16); Calcium 9.2 mg/dL (8.4-10.2); Carbon Dioxide 27 mmol/L (22-29); Chloride 106 mmol/L (96-108); Estimated Glomerular Filt Rate > 60; Glucose Random 57 mg/dL (60-115); Potassium 3.1 mmol/L (3.3-5.1); Sodium 143 mmol/L (135-145)
[2023-04-23 13:13] LABS: Amphetamine Screen Urine Not Detected (Not Detect); Barbiturates, Urine Not Detected (Not Detect); Benzodiazepines Screen Urine Not Detected (Not Detect); Cannabinoid Screen Urine POSITIVE (Not Detect); Cocaine Screen Urine Not Detected (Not Detect); Fentanyl, urine Not Detected (Not Detect); Opiate Screen Urine Not Detected (Not Detect); Phencyclidine Screen Urine Not Detected (Not Detect)
== END ==
LOC: HO.CARD 10:28
PROVIDERS: PCP Physician Assistant; Visit Provider Physician Assistant
DX: Z02.1 Encounter for pre-employment examination (principal); R00.1 Bradycardia, unspecified; N13.2 Hydronephrosis with renal and ureteral calculous obstruction
CPT/HCPCS: 80048; 80307; 81001; 85027; 88112; 93242

== ENCOUNTER → 2023-04-23 10:33 | Outpatient (BNV) | payer OTHER, SELFPAY | PROVIDERS: PCP Physician Assistant; Visit Provider Internal Medicine | DX: R00.1 Bradycardia, unspecified (principal) | CPT/HCPCS: 93244 ==

== ENCOUNTER 2023-05-07 10:21 | Outpatient (REF) | payer OTHER, SELFPAY ==
--- NOTE | ~2023-05-07 | US_ITS ---
EXAMINATION: US RETROPERITONEAL COMPLETE (RENAL) CLINICAL INFORMATION: Unspecified symptoms and signs involving the genitourinary system. COMPARISON: Ultrasound retroperitoneal limited (renal only) 11/08/2022. CT abdomen and pelvis without contrast 10/05/2022. TECHNIQUE: Real-time imaging of the kidneys and bladder. Limited visualization due to bowel gas. FINDINGS: RIGHT KIDNEY: 13.0 x 5.1 x 5.6 cm (SAG x AP x TRV). Mild right pelvocaliectasis. No renal calculi. Limited visualization. Renal cortical thickness is normal. LEFT KIDNEY: 12.6 x 6.5 x 5.2 cm (SAG x AP x TRV). Mild left pelvocaliectasis. No renal calculi. Renal cortical thickness is normal. Limited visualization. BLADDER: Well distended and unremarkable. Bilateral ureteral jets are demonstrated. Prevoid bladder volume is 204.4 mL. Postvoid bladder volume is 15.3 mL. The prostate volume is 18.8 mL. US/US retroperitoneal comp IMPRESSION: Mild bilateral renal pelvocaliectasis. No renal calculi identified. Limited visualization.
[2023-05-07 11:31] LABS: Blood Urea Nitrogen 7 mg/dL (9-16); Estimated Glomerular Filt Rate > 60
== END 2023-05-07 10:22 | disposition home or self-care (01) ==
LOC: HO.US 10:21
PROVIDERS: PCP Physician Assistant; Visit Provider Nurse Practitioner Family
DX: R39.9 Unspecified symptoms and signs involving the genitourinary system (principal); R82.998 Other abnormal findings in urine
CPT/HCPCS: 36415; 76770; 82565; 84520

== ENCOUNTER 2023-05-15 09:48 | Outpatient (AMB) | payer OTHER, SELFPAY ==
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
== END 2023-05-15 10:33 | disposition home or self-care (01) ==
PROVIDERS: PCP Physician Assistant; Visit Provider Nurse Practitioner Family
DX: R39.9 Unspecified symptoms and signs involving the genitourinary system (principal); F17.200 Nicotine dependence, unspecified, uncomplicated; R31.9 Hematuria, unspecified; R82.998 Other abnormal findings in urine
CPT/HCPCS: 99213

== ENCOUNTER 2023-05-15 09:48 | Outpatient (REF) | payer OTHER, SELFPAY | END 2023-05-15 09:49 | disposition home or self-care (01) | LOC: HO.LNP 09:48 | PROVIDERS: PCP Physician Assistant; Visit Provider Nurse Practitioner Family | DX: R31.9 Hematuria, unspecified (principal); R39.9 Unspecified symptoms and signs involving the genitourinary system; F17.200 Nicotine dependence, unspecified, uncomplicated; R82.998 Other abnormal findings in urine; Z87.442 Personal history of urinary calculi; Z79.899 Other long term (current) drug therapy | CPT/HCPCS: 51798; 81003; 99212 ==

== ENCOUNTER 2023-08-13 10:27 | Outpatient (AMB) | payer OTHER, SELFPAY ==
[2023-08-13 10:31] VITALS: BP 108/58; PULSE 46; O2SAT 99; BMI 36.5
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
== END 2023-08-13 10:58 | disposition home or self-care (01) ==
PROVIDERS: PCP Physician Assistant; Visit Provider Physician Assistant
DX: R00.1 Bradycardia, unspecified (principal); F43.10 Post-traumatic stress disorder, unspecified; E66.9 Obesity, unspecified; Z68.36 Body mass index [BMI] 36.0-36.9, adult; E87.6 Hypokalemia; Z90.3 Acquired absence of stomach [part of]; G47.33 Obstructive sleep apnea (adult) (pediatric)
CPT/HCPCS: 99214

== ENCOUNTER 2023-08-13 11:04 | Outpatient (REF) | payer OTHER, SELFPAY ==
[2023-08-13 12:03] LABS: Amphetamine Screen Urine Not Detected (Not Detect); Barbiturates, Urine Not Detected (Not Detect); Benzodiazepines Screen Urine Not Detected (Not Detect); Cannabinoid Screen Urine Not Detected (Not Detect); Cocaine Screen Urine Not Detected (Not Detect); Fentanyl, urine Not Detected (Not Detect); Opiate Screen Urine Not Detected (Not Detect); Phencyclidine Screen Urine Not Detected (Not Detect)
[2023-08-13 12:40] LABS: Anion Gap 11 (12-20); Blood Urea Nitrogen 11 mg/dL (9-16); Calcium 9.2 mg/dL (8.4-10.2); Carbon Dioxide 29 mmol/L (22-29); Chloride 105 mmol/L (96-108); Estimated Glomerular Filt Rate > 60; Glucose Random 93 mg/dL (60-115); Sodium 141 mmol/L (135-145)
== END 2023-08-13 11:05 | disposition home or self-care (01) ==
LOC: HO.LAB 11:04
PROVIDERS: PCP Physician Assistant; Visit Provider Physician Assistant
DX: Z02.1 Encounter for pre-employment examination (principal); E87.6 Hypokalemia
CPT/HCPCS: 80048; 80307

== ENCOUNTER → 2023-08-21 20:30 | Outpatient (REF) | payer OTHER, SELFPAY | LOC: HO.SL 20:30 | PROVIDERS: PCP Physician Assistant; Visit Provider Physician Assistant | DX: G47.33 Obstructive sleep apnea (adult) (pediatric) (principal) | CPT/HCPCS: 95810 ==

== ENCOUNTER → 2023-08-21 20:54 | Outpatient (BNV) | payer OTHER, SELFPAY | PROVIDERS: PCP Physician Assistant; Visit Provider Internal Medicine | DX: G47.33 Obstructive sleep apnea (adult) (pediatric) (principal) | CPT/HCPCS: 95810 ==

== ENCOUNTER 2024-04-15 09:47 | Outpatient (AMB) | payer OTHER, SELFPAY ==
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
[2024-04-15 09:49] VITALS: BP 106/50; PULSE 56; O2SAT 98; BMI 40.4
== END 2024-04-15 10:27 | disposition home or self-care (01) ==
PROVIDERS: PCP Physician Assistant; Visit Provider Physician Assistant
DX: Z00.00 Encounter for general adult medical examination without abnormal findings (principal); Z90.3 Acquired absence of stomach [part of]; Z87.891 Personal history of nicotine dependence; R86.8 Other abnormal findings in specimens from male genital organs; Z13.1 Encounter for screening for diabetes mellitus; Z23 Encounter for immunization

== ENCOUNTER → 2024-04-15 09:47 | Outpatient (BNVA) | payer OTHER, SELFPAY | PROVIDERS: PCP Physician Assistant; Visit Provider Physician Assistant | DX: Z00.01 Encounter for general adult medical examination with abnormal findings (principal); Z23 Encounter for immunization; R86.8 Other abnormal findings in specimens from male genital organs; Z90.3 Acquired absence of stomach [part of]; Z87.891 Personal history of nicotine dependence | CPT/HCPCS: 90471; 90656; 96127; 99395 ==

== ENCOUNTER 2024-07-29 16:12 | Emergency (ER) | payer OTHER, SELFPAY ==
--- NOTE | ~2024-07-29 | XR_ITS ---
CLINICAL HISTORY: 3rd finger inj 3 view left hand Comparison: None Findings: Bones intact. No dislocations. No erosions. No radiopaque foreign body. IMPRESSION: 1. No acute findings This document has been electronically signed by: Tong Titus MD on 07/29/2024 17:29:28
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
[2024-07-29 16:58] VITALS: BP 119/64; PULSE 47; RESP 18; TEMP 36.3; O2SAT 98; BMI 41.9
[2024-07-29 21:01] VITALS: BP 124/67; PULSE 54; RESP 18; TEMP 36.8; O2SAT 100
[2024-07-29] MEDS: Acetaminophen 325 MG TABLET 975 MG PO (22:44)
[2024-07-29] MEDS: Ketorolac Tromethamine 30 MG/ML VIAL IM (22:44)
[2024-07-29 22:57] VITALS: BP 124/67; PULSE 54; RESP 18; TEMP 36.8; O2SAT 100
== END 2024-07-29 22:58 | disposition home or self-care (01) ==
PROVIDERS: Emergency Provider Emergency Medicine; PCP Physician Assistant
DX: S63.613A Unspecified sprain of left middle finger, initial encounter (principal); M79.642 Pain in left hand; X58.XXXA Exposure to other specified factors, initial encounter; Y93.89 Activity, other specified; Y92.89 Other specified places as the place of occurrence of the external cause; Y99.8 Other external cause status
CPT/HCPCS: 29130; 73120; 96372; 99283; 99284; J1885

== ENCOUNTER → 2024-07-29 17:10 | Outpatient (BNV) | payer OTHER, SELFPAY | PROVIDERS: PCP Physician Assistant; Visit Provider Radiology Diagnostic Radiology | DX: S69.92XA Unspecified injury of left wrist, hand and finger(s), initial encounter (principal) | CPT/HCPCS: 73120 ==

== ENCOUNTER 2025-02-13 17:28 | Emergency (ER) | payer SELFPAY ==
[2025-02-13 18:08] VITALS: BP 131/70; PULSE 71; RESP 18; TEMP 36.4; O2SAT 99; BMI 42.1
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
[2025-02-14 05:56] VITALS: BP 131/70; PULSE 71; RESP 18; TEMP 36.4; O2SAT 99
== END 2025-02-13 21:00 | disposition home or self-care (01) ==
PROVIDERS: Emergency Provider Emergency Medicine
DX: K04.7 Periapical abscess without sinus (principal); K08.89 Other specified disorders of teeth and supporting structures
CPT/HCPCS: 96372; 99283; 99284; J1885